=== PATIENT | female | born 1950 | race Caucasian/White ===

== ENCOUNTER → 2018-01-10 06:59 | Outpatient (CLI) | payer OTHER, SELFPAY ==
[2018-01-10 10:57] LABS: Color, Urine Yellow (Yellow); Glucose, Dipstick 1000 mg/dl (Normal); Ketone-Dipstick Negative (Negative); Leukocyte Esterase-Dipstick 25 /ul (Negative); Nitrite-Dipstick Negative (Negative); Occult Blood-Urine 10 /ul (Negative); Protein-Dipstick 15 mg/dl (Negative); Specific Gravity, Urine 1.015 (1.002-1.030); Urine Bilirubin Dipstick Negative (Negative); Urine Clarity Clear (Clear); Urine Urobilinogen Normal (Normal)
[2018-01-10 11:39] LABS: AST(SGOT) 12 U/L (15-37); Alanine Aminotransfer ALT/SGPT 29 U/L (13-56); Albumin, Serum 3.8 g/dL (3.2-5.0); Alkaline Phosphatase 102 U/L (45-117); Anion Gap 10 (5-15); BUN 20 mg/dL (7-18); BUN/Creat Ratio 16.9 RATIO (10-20); Calcium,Total 9.2 mg/dL (8.5-10.1); Chloride 98 mmol/L (98-107); Creatinine, Serum 1.18 mg/dL (0.55-1.02); EST Glomerular Filtration Rate 48 mL/min (>60); Est Glom Filt Rate - Afr Amer 59 mL/min (>60); Globulin 3.7 g/dL (2.2-4.2); Glucose 389 mg/dL (74-106); Potassium 3.9 mmol/L (3.5-5.1); Protein, Total 7.5 g/dL (6.4-8.2); Sodium Level 138 mmol/L (136-145)
[2018-01-10 11:48] LABS: Microalbumin,Random Urine 38.9 mg/L (NO RANGE EST.); Microalbumin:Creatinine Ratio 60.5 mg/g CRE (<30 mg/g CRE)
[2018-01-14 12:07] LABS: CHOLESTEROL TOTAL 189 mg/dL (100-199); HDL-C 54 mg/dL (>39); HDL-P TOTAL 38.4 umol/L (>=30.5); SMALL LDL-P 851 nmol/L (<=527); TRIGLYCERIDES 104 mg/dL (0-149)
[2018-01-15 11:36] LABS: LDL SIZE 20.5 nm (>20.5); LDL-C 114 mg/dL (0-99); LDL-P 1751 nmol/L (<1000); LP-IR SCORE ** 79 (<=45)
== END ==
PROVIDERS: Family Provider Internal Medicine; PCP Internal Medicine; Visit Provider Internal Medicine
DX: E11.9 Type 2 diabetes mellitus without complications (principal); E03.9 Hypothyroidism, unspecified; E78.00 Pure hypercholesterolemia, unspecified; R82.90 Unspecified abnormal findings in urine
CPT/HCPCS: 36415; 80053; 80061; 81002; 82043; 82570; 83704; 84443; 87086; 87088; 87186

== ENCOUNTER → 2018-04-25 07:02 | Outpatient (CLI) | payer OTHER, SELFPAY ==
[2018-04-25 10:35] LABS: Absolute Lymphocyte Count 2.04 X10^3/ul (0.83-4.51); Basophil# 0.03 X10^3/uL; Basophil% 0.4 % (0-1); Eosinophil# 0.79 X10^3/uL; Eosinophils% 9.6 % (0-5); Hemoglobin 13.3 g/dl (12.0-15.0); Lymphocyte # 2.04 X10^3/ul (4.0); Lymphocyte % 24.9 % (19-41); Mean Corp Hgb Conc 31.7 g/gl (32-36); Mean Corpuscular Hgb 28.1 pg (27.0-32.0); Mean Corpuscular Volume 88.6 fL (81-99); Mean Platelet Vol. 9.2 fl (6.2-12.0); Monocyte# 0.37 X10^3/uL; Monocyte% 4.5 % (0-10); Neutrophil # 4.96 X10^3/uL (2.7-7.7); Neutrophil % 60.5 % (47-70); Platelet Count 533 K/mm3 (150-450); RBC Distribution Width CV 12.4 % (11.6-14.6); RBC Distribution Width SD 40.1 fl (35.1-43.9); Red Blood Count 4.74 M/mm3 (4.2-5.4); White Blood Count 8.2 K/mm3 (4.4-11.0)
[2018-04-25 10:36] LABS: POSITIVE COUNT NO; POSITIVE DIFFERENTIAL NO; POSITIVE MORPHOLOGY NO
[2018-04-25 10:57] LABS: Hemoglobin A1c 11.3 % (4.2-6.3)
[2018-04-25 11:09] LABS: Microalbumin:Creatinine Ratio 52.6 mg/g CRE (<30 mg/g CRE)
[2018-04-25 11:11] LABS: ALB/GLOB Ratio 0.8 RATIO (0.9-2.4); AST(SGOT) 15 U/L (15-37); Alanine Aminotransfer ALT/SGPT 29 U/L (13-56); Albumin, Serum 3.3 g/dL (3.2-5.0); Alkaline Phosphatase 92 U/L (45-117); Anion Gap 9 (5-15); BUN 15 mg/dL (7-18); BUN/Creat Ratio 13.3 RATIO (10-20); Bilirubin, Direct 0.15 mg/dL (0.00-0.30); Calcium,Total 9.6 mg/dL (8.5-10.1); Chloride 101 mmol/L (98-107); Creatinine, Serum 1.13 mg/dL (0.55-1.02); EST Glomerular Filtration Rate 51 mL/min (>60); Est Glom Filt Rate - Afr Amer 61 mL/min (>60); Ferritin 147 ng/mL (8-252); Globulin 4.4 g/dL (2.2-4.2); Glucose 160 mg/dL (74-106); Potassium 4.3 mmol/L (3.5-5.1); Protein, Total 7.7 g/dL (6.4-8.2); Sodium Level 141 mmol/L (136-145); Thyroid Stim Hormone (TSH) 1.46 uIU/mL (0.358-3.74)
[2018-04-29 11:56] LABS: Lipoprotein A 16 nmol/L (<75)
== END ==
PROVIDERS: Family Provider Internal Medicine; PCP Internal Medicine; Referring Provider Internal Medicine; Visit Provider Internal Medicine
DX: E03.9 Hypothyroidism, unspecified (principal); I10 Essential (primary) hypertension; R79.82 Elevated C-reactive protein (CRP); E11.9 Type 2 diabetes mellitus without complications; E78.00 Pure hypercholesterolemia, unspecified; D64.9 Anemia, unspecified
CPT/HCPCS: 36415; 80053; 82043; 82248; 82570; 82728; 83036; 83695; 84443; 85025; 86140

== ENCOUNTER → 2018-05-09 08:35 | Outpatient (CLI) | payer OTHER, SELFPAY ==
--- NOTE | 2018-05-09 08:40 | RAD_ITS ---
STUDY: X-RAY - LEFT HIP with AP pelvis REASON FOR EXAM: Female, 67 years old. Left hip pain TECHNIQUE: 2 views of the hip. AP pelvis. COMPARISON: None. FINDINGS: There are vascular phleboliths. Normal femoral head, neck, intertrochanteric region and visualized proximal femur. Normal acetabulum. Normal hip joint. Pelvic ring is intact without evidence of lytic or sclerotic bone lesion. There are surgical clips projecting over the right side of the sacrum. Degenerative changes of the lumbar spine noted. RAD/HIP, UNI W/ Pelvis 2-3 Views IMPRESSION: 1. Normal x-ray examination of the hip. 2. Partially visualized degenerative changes of the lumbar spine. Electronically Signed: Juan Daniel Corrigan MD at 7:13 EST , Service support ,
--- NOTE | 2018-05-09 08:41 | RAD_ITS ---
STUDY: X-RAY CHEST REASON FOR EXAM: Female, 67 years old. Cough TECHNIQUE: PA and lateral views of the chest. COMPARISON: 07/04/2016 FINDINGS: The lungs are clear and expanded. There is no demonstrated pleural abnormality. Normal size heart. Normal mediastinum and ayaz. Normal visualized pulmonary arteries. Normal visualized aortic arch and descending thoracic aorta. There are diffuse degenerative changes of the visualized thoracic spine. Normal visualized ribs, clavicles, and shoulders. There is no demonstrated abnormality of the visualized soft tissue structures of the upper abdomen. RAD/Chest PA and Lateral IMPRESSION: Normal x-ray examination of the chest. Electronically Signed: Juan Daniel Corrigan MD at 7:14 EST , Service support ,
== END ==
PROVIDERS: Family Provider Internal Medicine; PCP Internal Medicine; Referring Provider Internal Medicine; Visit Provider Internal Medicine
DX: M25.552 Pain in left hip (principal); J06.9 Acute upper respiratory infection, unspecified
CPT/HCPCS: 71046; 73502

== ENCOUNTER → 2018-05-14 08:31 | Outpatient (CLI) | payer OTHER, SELFPAY ==
--- NOTE | 2018-05-14 08:33 | BI_ITS ---
MAMMOGRAPHY - BILATERAL SCREENING REASON FOR EXAM: Female, 67 years old. Routine annual screening examination. PERTINENT HISTORY: Non-contributory. TECHNIQUE: Digital bilateral breast wiinfred (3D mammographic acquisition) in the CC and MLO projections. 2-D mediolateral oblique (MLO) and craniocaudad (CC) views of both breasts were obtained. CAD: Full Field Digital Mammography with Computer Added Detection was performed. COMPARISON: Comparison is made with prior study dated July 26, 2016. FINDINGS: Breast Composition: The breasts are almost entirely fatty. There are no dominant masses or suspicious calcifications. Stable well-defined 4.4 mm nodule in the upper lateral aspect of the left breast. Stable 1 cm well-defined nodule in the upper deep lateral portion of the right breast. These may represent either small lymph nodes or small cysts. Correlation with ultrasound is recommended. Stable small bilateral axillary lymph nodes. No other significant abnormalities are identified. There has been no significant change since the prior study. BI/SCREENING MAMM (CAD), BILAT IMPRESSION: Stable bilateral screening mammogram. Correlation with ultrasound of both breasts is recommended for further evaluation. ASSESSMENT CATEGORY: BIRADS Category 0: Incomplete. Need additional imaging evaluation. A letter regarding these results will be sent to the patient by the facility within 30 days. Approximately 10% of breast cancers are not detected by mammography. A normal mammogram should not delay biopsy of a clinically suspicious abnormality. [id number] Electronically Signed: Fei Gasca MD at 10:12 EST Tel [phone], Service support ,
== END ==
PROVIDERS: Family Provider Internal Medicine; PCP Internal Medicine; Visit Provider Internal Medicine
DX: Z12.31 Encounter for screening mammogram for malignant neoplasm of breast (principal)
CPT/HCPCS: 77063; 77067

== ENCOUNTER → 2018-05-16 12:59 | Outpatient (CLI) | payer OTHER, SELFPAY ==
--- NOTE | 2018-05-16 13:00 | US_ITS ---
STUDY: ULTRASOUND BREAST - RIGHT REASON FOR EXAM: Female, 67 years old. Abnormal screening mammogram. TECHNIQUE: Axial and longitudinal images of the RIGHT breast were performed with a high resolution ultrasound transducer. COMPARISON: Comparison is made with prior mammogram dated May 14, 2018. FINDINGS: RIGHT Breast: There is a 9 mm x 5 mm x 6 mm well-defined hypoechoic nodule with a central echogenic hilus at the 11:00 position breast at 6 cm from nipple. This most likely represents a small lymph node. IMPRESSION: The mammographic finding corresponds to 9 mm x 5 mm x 6 mm lymph node at the 11 o'clock position of the breast at 6 cm from the nipple. ASSESSMENT CATEGORY: BIRADS Category 2: Benign. A letter regarding these results will be sent to the patient by the facility within 30 days. Electronically Signed: Fei Gasca MD at 14:44 EST Tel [phone], Service support , STUDY: ULTRASOUND BREAST - LEFT REASON FOR EXAM: Female, 67 years old. Abnormal screening mammogram. TECHNIQUE: Axial and longitudinal images of the LEFT breast were performed with a high resolution ultrasound transducer. COMPARISON: Comparison is made with prior mammogram dated May 14, 2018. FINDINGS: LEFT Breast: The mammographic abnormality corresponds to a 7 mm x 5 mm x 3 mm hypoechoic nodule with central echogenic hilum suggestive of a small lymph node. US/Breast Limited Unilateral IMPRESSION: The mammographic abnormality corresponds to a subcentimeter lymph node. Routine annual mammographic follow-up is recommended. ASSESSMENT CATEGORY: BIRADS Category 2: Benign. A letter regarding these results will be sent to the patient by the facility within 30 days. Electronically Signed: Fei Gasca MD at 14:45 EST Tel [phone], Service support ,
== END ==
PROVIDERS: Family Provider Internal Medicine; PCP Internal Medicine; Visit Provider Internal Medicine
DX: R92.8 Other abnormal and inconclusive findings on diagnostic imaging of breast (principal)
CPT/HCPCS: 76642

== ENCOUNTER 2018-06-16 07:00 | Outpatient (RCR) | payer OTHER, SELFPAY ==
--- NOTE | 2018-05-16 07:58 | HP.PTEVAL ---
Patient's Visit Information ROGER DAMON is a 67 year old F referred to Physical Therapy by Candice Linton MD with a diagnosis of Hip Pain. Date of Evaluation: 05/16/18 Physical Therapist: Coleen Li DPT - Visit Plan Frequency: 2-3x /Week Duration: 4 Weeks Plan: Focus on LE and core strength- ultrasound as modality of choice - Subjective Findings: About 3 months ago when she first got up in the AM the left hip was deep and achy. She would get ready for work move around and after an hour it would go awaay. Thinking probably arthritis. About a month ago walking through the grocery- took a step and a pain so intense shot through it- could not put weight on it and took about 10 min and then could. A couple of days after that it really hurt for a few days- ice would help relieve the pain but it would be sore. Last week to Dr. Linton- took an x-ray which showed the hip was the normal but the back has arthritis. Now the other side is starting to bother her. Best: 0/10 Eases: sitting down and ice. Worst:10/10. Feels like the hip is going to give out. No radiating pain- Has had a the sharp take her breathe away it a few times. No N/T in the LE- no change or loss of bowel or bladder. No back pain. 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 Did ride a stationary bike and walks at lunch time but has stopped due to pain. No falls at home. Sleep: not disturbed- side sleeper- when she rolls over in the middle of the night it will wak her due to pain. No recent changes in activity level. Is unable to squat and pick something up off the floor. Does have stairs which is more uncomfortable going up than coming down. PMhx: DM, HTN, Hypothyroid Meds: Bidurian, Levomere, Losartin, Synthroid, Prevastatin - Objective Posture: FH, RS, increased kyphosis- can correct but does not maintain. Gait: slightly antalgic decreased stance and push off on the left LE-. Stairs:asc/desc 8 recip with 1 HR- increased UE A for ascend. HR/TR: able with UE A from wall and reports more pain with TR. SLS: unable to stand more than 2 seconds before required to put other foot on the floor for balance. Sensation/Reflex: WNL. ROM: Lumbar: WFL in all planes but reports pain with SB to the right and flexion. -pain with ER on the left. Palpation: tender along great troch and through the gluts on the left. Strength: Ankle: 5/5, Knee: flexion: 4/5, extn: 5/5, Hip: flexion: 4-/5, abd: 4-/5, clam glut med: 4-/5 with pain, IR: 4/5, ER: 3+/5 with pain Core: fair minus. Flex: HS: mild, Gastroc: mild. Special Test: Slump: negative, Dural Signs on left: positive - Goals Goal 1:: Patient will be I with HEP and progression Goal Time Frame: 4-6 Weeks Goal 2:: Patient will ambulate >300 feet with a normalized gait pattern. Goal Time Frame: 4-6 Weeks Goal 3:: Patient will asc stairs with 0/10 pain Goal Time Frame: 4-6 Weeks Goal 4:: Patient will demo 4+/5 strength in LE Goal Time Frame: 4-6 Weeks Goal 5:: Patient will maintain proper posture t/o tx session to demo increased core s/s Goal Time Frame: 4-6 Weeks - Rehabilitation Potential Physical Therapy Diagnosis: Patient presents with hypomobility- she has decreased strength and muscular endurance of the LE and core leading increased pain with ADL's. Rehabilitation Potential: Good - Anticipated Interventions Therapeutic Exercise to Include: Strength training, Endurance training, Balance training, Body mechanics, Postural training, Gait and locomotor training, Dynamic Lumbar Stabilization For the Purpose of:: To improve muscle performance and motor function TENS: Yes Cryotherapy (ice pack, ice massage): Yes Thermo therapy (hot pack): Yes Ultrasound (thermal/non thermal): Yes For the Purpose of:: To decrease pain, To decrease swelling/inflammation Thank you for the opportunity to evaluate your patient. For Medicare and Medicare HMO plans, please review the plan of care and approve it. It will need to be FAXED BACK to us at [phone] for Medicare purposes. For Medicare only, by signing this I certify the plan of care. Please let me know if there are questions or concerns regarding this plan of care. Physician Signature: Date:
--- NOTE | 2018-06-16 07:29 | HP.PTDCSUM ---
HP - PT D/C Summary It has been my pleasure to treat ROGER DAMON under orders from Candice Linton MD, for the diagnosis of Hip Pain for a total of 9 visit(s). Discharge Date: Please see the following information for a summary of their discharge status. - Subjective Subjective: The hip is so much better- is not having those grabbing sharp pains at all anymore. Still has discomfort with figure 4. Sleep is not disturbed. Patient feels that her is hipis 85% better. - Pain L hip Pain Intensity (Out of 10): 0 - Overall Improvement % Improvement: 85 - Objective Objective/Function: Posture: good throughout treatment session in supported chair Gait: no devaition noted-. Stairs:asc/desc 8 recip with 1 HR- no deviation noted. HR/TR: able with UE A. SLS: unable to stand more than 7 seconds before required to put other foot on the floor for balance. Sensation/Reflex: WNL. ROM: WFL Palpation: not tender Strength: Ankle: 5/5, Knee: flexion: 5/5, extn: 5/5, Hip: flexion: 4+/5, abd: 4+/5, clam glut med: 4/5, IR: 4+/5, ER: 4/5 Core: fair Flex: HS: mild, Gastroc: mild. Special Test: Slump: negative, Dural Signs on left:negative - Goals Goal 1:: Patient will be I with HEP and progression Goal Progress: Goal Met Goal 2:: Patient will ambulate >300 feet with a normalized gait pattern. Goal 3:: Patient will asc stairs with 0/10 pain Goal Progress: Goal Met Goal 4:: Patient will demo 4+/5 strength in LE Goal Progress: Progressing Goal 5:: Patient will maintain proper posture t/o tx session to demo increased core s/s Goal Progress: Goal Met - Plan Plan: Discharge to I HEP - D/C Information If there are questions or concerns regarding this patient's physical therapy, please feel free to call me at [phone]. Thank you for the referral of this patient. Sincerely, Coleen Li DPT
== END 2018-06-16 19:00 | disposition home or self-care (01) ==
LOC: PT 07:00
PROVIDERS: Family Provider Internal Medicine; PCP Internal Medicine; Referring Provider Internal Medicine; Visit Provider Internal Medicine
DX: M25.552 Pain in left hip (principal)
CPT/HCPCS: 97110; 97161; 97164

== ENCOUNTER → 2018-07-29 08:29 | Outpatient (CLI) | payer OTHER, SELFPAY ==
--- NOTE | 2018-07-29 08:33 | BD_ITS ---
STUDY: DUAL ENERGY X-RAY ABSORPTIOMETRY / DXA REASON FOR EXAM: Female, 68 years old. The patient is postmenopausal. TECHNIQUE: Bone Mineral Density (BMD) measurements of lumbar spine and bilateral hips were obtained. COMPARISON: Comparison is made with prior study dated July 26, 2016. FINDINGS: Lumbar Spine (L1-L4): g/cm2 (1.253) / T-score (0.7) / Z-score (2.4) Findings are suggestive of normal bone density with a low fracture risk. Left Femur Total: g/cm2 (0.992) / T-score (-0.1) / Z-score (1.3) Left Femoral Neck: g/cm2 (0.920) / T-score (-0.9) / Z-score (0.8) Right Femur Total: g/cm2 (0.994) / T-score (-0.1) / Z-score (1.3) Right Femoral Neck: g/cm2 (1.219) / T-score (1.3) / Z-score (3.0) The T-Scores on the most recent prior examination were: Lumbar Spine (L1-L4): There has been worsening of bone density since the previous examination. Left Femur Total: which represents a worsening of 5.5%. Right Femur Total: which represents a worsening of 6.1%. BD/Dexa Bone Density Study IMPRESSION: The patient is considered normal as outlined below according to World Yosvany Organization (WHO) criteria with a low fracture risk. There has been worsening of bone density since the previous examination. Reference Information: The T-score is the number of standard deviations above or below the standard which is normal for young adults at their peak bone mineral density. The World Health Organization (WHO) interprets the T-scores as follows: Above -1 Normal bone density Between -1 and -2.5 Osteopenia Equal to / or below -2.5 Osteoporosis As a practical clinical guideline, osteopenia may be graded as follows: Mild -1 through -1.5 Moderate -1.6 through -2.0 Severe -2.1 through -2.4 The Z-score is the number of standard deviations above or below age-matched controls. A Z-score of less than -1.5 would be considered abnormal. References: 1. NIH Osteoporosis and Related Bone Diseases http://www.osteo.org 2. International Society for Clinical Densitometry http://www.iscd.org 3. National Osteoporosis Foundation http://www.nof.org Electronically Signed: Fei Gasca, at 14:12 EDT , Service support ,
== END ==
PROVIDERS: Family Provider Internal Medicine; PCP Internal Medicine; Referring Provider Internal Medicine; Visit Provider Internal Medicine
DX: Z78.0 Asymptomatic menopausal state (principal)
CPT/HCPCS: 77080

== ENCOUNTER → 2018-09-11 07:01 | Outpatient (CLI) | payer OTHER, SELFPAY ==
[2018-09-11 10:33] LABS: AST(SGOT) 12 U/L (15-37); Alanine Aminotransfer ALT/SGPT 24 U/L (13-56); Albumin, Serum 3.7 g/dL (3.2-5.0); Alkaline Phosphatase 76 U/L (45-117); Globulin 3.6 g/dL (2.2-4.2); Protein, Total 7.3 g/dL (6.4-8.2)
[2018-09-12 16:07] LABS: CHOLESTEROL TOTAL 136 mg/dL (100-199); HDL-C 51 mg/dL (>39); HDL-P TOTAL 36.3 umol/L (>=30.5); SMALL LDL-P 327 nmol/L (<=527); TRIGLYCERIDES 85 mg/dL (0-149)
[2018-09-15 13:50] LABS: INSULIN RESISTANCE SCORE 50 (<=45); LDL SIZE 20.5 nm (>20.5); LDL-C 68 mg/dL (0-99); LDL-P 862 nmol/L (<1000)
== END ==
PROVIDERS: Family Provider Internal Medicine; PCP Internal Medicine; Referring Provider Internal Medicine; Visit Provider Internal Medicine
DX: E03.9 Hypothyroidism, unspecified (principal); E11.9 Type 2 diabetes mellitus without complications; I10 Essential (primary) hypertension; R79.82 Elevated C-reactive protein (CRP); D64.9 Anemia, unspecified; E78.00 Pure hypercholesterolemia, unspecified
CPT/HCPCS: 36415; 80061; 80076; 83704

== ENCOUNTER → 2018-11-03 | Outpatient (CLI) | payer OTHER, SELFPAY ==
--- NOTE | 2018-11-03 07:53 | US_ITS ---
STUDY: ULTRASOUND BREAST - RIGHT REASON FOR EXAM: Female, 68 years old. Six-month follow-up. History of bilateral axillary lymph nodes. TECHNIQUE: Axial and longitudinal images of the RIGHT breast were performed with a high resolution ultrasound transducer. COMPARISON: Comparison is made with prior ultrasound of the right breast dated May 16, 2018. FINDINGS: RIGHT Breast: There is a 9 mm x 6 mm x 5 mm well-defined hypoechoic nodule with a central echogenic hilus at the level o'clock position breast at 6 cm from nipple. This is unchanged. IMPRESSION: Findings suggestive of a stable small right axial lymph node. ASSESSMENT CATEGORY: BIRADS Category 2: Benign. A letter regarding these results will be sent to the patient by the facility within 30 days. Electronically Signed: Fei Campos, at 10:30 EDT , Service support , STUDY: ULTRASOUND BREAST - LEFT REASON FOR EXAM: Female, 68 years old. Six-month follow-up for a left axillary lymph node. TECHNIQUE: Axial and longitudinal images of the LEFT breast were performed with a high resolution ultrasound transducer. COMPARISON: Comparison is made with prior ultrasound of the breasts dated May 16, 2018. FINDINGS: LEFT Breast: Stable 4 mm x 7 mm x 3 mm well-defined hypoechoic nodule with a central echogenic hilum at the 3:00 position breast at 6 signs from nipple. US/Breast Limited Unilateral IMPRESSION: Stable appearance of the benign appearing axillary node. ASSESSMENT CATEGORY: BIRADS Category 2: Benign. A letter regarding these results will be sent to the patient by the facility within 30 days. Electronically Signed: Fei Gasca, at 10:31 EDT , Service support ,
== END | disposition home or self-care (01) ==
LOC: OPUS 07:51
PROVIDERS: Family Provider Internal Medicine; PCP Internal Medicine; Referring Provider Internal Medicine; Visit Provider Internal Medicine
DX: N63.0 Unspecified lump in unspecified breast (principal)
CPT/HCPCS: 76642

== ENCOUNTER → 2018-12-19 | Outpatient (CLI) | payer OTHER, SELFPAY ==
[2018-12-19 10:21] LABS: Absolute Lymphocyte Count 1.95 X10^3/uL (0.83-4.51); Absolute Neutrophil Count 4.3 X10^3/uL (2.0-7.7); Basophil# 0.06 X10^3/uL; Basophil% 0.8 % (0-1); Eosinophils% 9.2 % (0-5); Hematocrit 41.8 % (37-47); Hemoglobin 13.5 g/dL (12.0-15.0); Lymphocyte # 1.95 X10^3/ul (4.0); Lymphocyte % 25.7 % (19-41); Mean Corp Hgb Conc 32.3 g/dL (32-36); Mean Corpuscular Hgb 28.8 pg (27.0-32.0); Mean Corpuscular Volume 89.3 fL (81-99); Mean Platelet Vol. 10.2 fl (6.2-12.0); Monocyte# 0.54 X10^3/uL; Monocyte% 7.1 % (0-10); NRBC Flagged by Analyzer 0 % (0-5); Neutrophil # 4.33 X10^3/uL (2.7-7.7); Neutrophil % 56.9 % (47-70); Platelet Count 328 K/mm3 (150-450); RBC Distribution Width SD 42.5 fl (35.1-43.9); Red Blood Count 4.68 M/mm3 (4.2-5.4); White Blood Count 7.6 K/mm3 (4.4-11.0)
[2018-12-19 10:39] LABS: Anion Gap 3 (5-15); BUN 26 mg/dL (7-18); BUN/Creat Ratio 24.1 RATIO (10-20); CRP 8.66 mg/L (0.0-3.0); Calcium,Total 9.3 mg/dL (8.5-10.1); Chloride 107 mmol/L (98-107); Creatinine, Serum 1.08 mg/dL (0.55-1.02); EST Glomerular Filtration Rate 53 mL/min (>60); Est Glom Filt Rate - Afr Amer 65 mL/min (>60); Glucose 166 mg/dL (74-106); Potassium 4.3 mmol/L (3.5-5.1); Sodium Level 142 mmol/L (136-145)
== END | disposition home or self-care (01) ==
LOC: MTLAB 07:02
PROVIDERS: Family Provider Internal Medicine; PCP Internal Medicine; Referring Provider Internal Medicine; Visit Provider Internal Medicine
DX: I10 Essential (primary) hypertension (principal); D47.3 Essential (hemorrhagic) thrombocythemia; R79.82 Elevated C-reactive protein (CRP)
CPT/HCPCS: 36415; 80048; 85025; 86140

== ENCOUNTER → 2019-04-27 12:04 | Outpatient (CLI) | payer OTHER, SELFPAY ==
--- NOTE | 2019-04-27 12:07 | RAD_ITS ---
STUDY: X-RAY - LEFT KNEE REASON FOR EXAM: Female, 68 years old. MEDIAL PAIN, NKI TECHNIQUE: 4 view(s) of the knee. COMPARISON: None. FINDINGS: Normal visualized distal femur. Normal visualized proximal tibia and fibula. Normal proximal tibiofibular articulation. There is no demonstrated fracture. Normal medial femorotibial compartment. Normal lateral femorotibial compartment. Normal patellofemoral articulation. Mild joint effusion. The soft tissue structures are unremarkable. RAD/Knee 4 or More Views IMPRESSION: Mild joint effusion otherwise normal x-ray examination of the knee. Electronically Signed: Kiara Burgess MD at 3:17 EST , Service support ,
== END ==
PROVIDERS: Family Provider Internal Medicine; PCP Internal Medicine; Visit Provider Internal Medicine
DX: M25.562 Pain in left knee (principal)
CPT/HCPCS: 73564

== ENCOUNTER → 2019-05-22 11:25 | Outpatient (CLI) | payer OTHER, SELFPAY ==
--- NOTE | 2019-05-22 11:27 | BI_ITS ---
MAMMOGRAPHY - BILATERAL SCREENING REASON FOR EXAM: Female, 69 years old. Routine annual screening examination. PERTINENT HISTORY: Non-contributory. TECHNIQUE: Digital bilateral breast parth (3D mammographic acquisition) in the CC and MLO projections. 2-D mediolateral oblique (MLO) and craniocaudad (CC) views of both breasts were obtained. CAD: Full Field Digital Mammography with Computer Added Detection was performed. COMPARISON: Comparison is made with prior mammogram dated May 14, 2018 and July 26, 2006 FINDINGS: Breast Composition: The breasts are almost entirely fatty. There are no dominant masses or suspicious calcifications. Stable 1 cm well-defined nodule in the upper deep lateral portion of the right breast as well as a 4 mm nodule in the upper lateral aspect of the left breast. These have been demonstrated to be small lymph nodes on prior sonogram. No other significant abnormalities are identified. There has been no significant change since the prior study. BI/SCREEN MAMM (CAD) W/PARTH BILAT IMPRESSION: Stable bilateral screening mammogram. Yearly follow-up mammogram recommended. (A) ASSESSMENT CATEGORY: BIRADS Category 2: Benign. A letter regarding these results will be sent to the patient by the facility within 30 days. Approximately 10% of breast cancers are not detected by mammography. A normal mammogram should not delay biopsy of a clinically suspicious abnormality. [id number] Electronically Signed: Fei Gasca, at 12:43 EST , Service support ,
== END ==
PROVIDERS: Family Provider Internal Medicine; PCP Internal Medicine; Referring Provider Internal Medicine; Visit Provider Internal Medicine
DX: Z12.31 Encounter for screening mammogram for malignant neoplasm of breast (principal)
CPT/HCPCS: 77063; 77067

== ENCOUNTER → 2020-03-08 11:36 | Outpatient (CLI) | payer OTHER, SELFPAY ==
--- NOTE | 2020-03-08 11:40 | CT_ITS ---
STUDY: CT ORBITS WITHOUT CONTRAST REASON FOR EXAM: Female, 69 years old. Fell last night. brushing to right eye with swelling RADIATION DOSAGE (If Supplied By Facility): CTDIvol = ( 29.38 ) mGy, DLP = ( 275.66 ) mGycm TECHNIQUE: The patient was scanned in a multi detector CT scanner. Transaxial imaging was performed without the administration of intravenous contrast material. Sagittal and coronal images were reconstructed. Individualized dose optimization techniques were used for this CT. COMPARISON: None. FINDINGS: Focal calcification is seen along the lateral aspect of the right globe. Normal intraconal spaces. Normal optic nerve sheath complex. Normal bilateral extraocular muscles. Normal lacrimal glands. Normal bilateral medial and inferior orbital narayanan. Normal bilateral maxillary bones. Normal bilateral frontozygomatic arches. Normal bilateral zygomatic temporal arches. Normal frontal sinus. Partial opacification of the ethmoid sinuses. Minimal mucosal thickening of the maxillary sinuses. Normal sphenoid sinuses. Soft tissue swelling overlying the right orbit suggestive of the probable ecchymosis with a history of fall. CT/Orb Sella Post Fossa Ear w/o IMPRESSION: Preseptal soft tissue swelling overlying the right orbit. Partial opacification of the ethmoid sinuses and mucosal thickening of the maxillary sinuses. Electronically Signed: Fei Gasca, at 12:11 EST , Service support ,
--- NOTE | 2020-03-08 11:45 | CT_ITS ---
STUDY: CT BRAIN WITHOUT CONTRAST REASON FOR EXAM: Female, 69 years old. Fell last night. brushing to right eye with swelling RADIATION DOSAGE (If Supplied By Facility): CTDIvol = ( 44.99 ) mGy, DLP = ( 796.11 ) mGycm TECHNIQUE: Transaxial CT imaging of the brain was performed without administration of intravenous contrast material. Individualized dose optimization techniques were used for this CT. COMPARISON: No relevant priors. FINDINGS: Preseptal soft tissue swelling overlying the right orbital region and compared with the patient''s history of trauma. Focal calcification is seen along the lateral of the right globe. There is hyperostosis frontalis internus. There is mild cerebral atrophy with widening of the extra-axial spaces and ventricular dilatation. There are areas of decreased attenuation within the white matter tracts of the supratentorial brain, consistent with microvascular disease changes. Normal basal ganglia and thalami. Normal brainstem. Normal cerebellum. There is no intracranial hemorrhage. There are no findings of an acute ischemic infarction. Partial opacification of the ethmoid sinuses. Mucosal thickening of the maxillary sinuses. Focal mucosal thickening of the anterior medial aspect of the left frontal sinus. IMPRESSION : Chronic involutional changes of the brain. Soft tissue swelling overlying the right globe. No fracture is seen. Sinusitis as described. Electronically Signed: Fei Gasca, at 12:13 EST , Service support , CT/Brain/Head without Contrast
== END ==
PROVIDERS: PCP Internal Medicine; Referring Provider Internal Medicine; Visit Provider Internal Medicine
DX: S09.90XA Unspecified injury of head, initial encounter (principal)
CPT/HCPCS: 70450; 70480

== ENCOUNTER → 2020-06-03 14:58 | Outpatient (CLI) | payer OTHER, SELFPAY ==
--- NOTE | 2020-06-03 15:00 | BI_ITS ---
MAMMOGRAPHY - BILATERAL SCREENING REASON FOR EXAM: Female, 70 years old. Routine annual screening examination. PERTINENT HISTORY: Non-contributory. TECHNIQUE: Digital bilateral breast parth (3D mammographic acquisition) in the CC and MLO projections. 2-D mediolateral oblique (MLO) and craniocaudad (CC) views of both breasts were obtained. CAD: Full Field Digital Mammography with Computer Added Detection was performed. COMPARISON: Comparison is made with prior study dated 05/22/2019 and 05/14/2018. FINDINGS: Breast Composition: The breasts are almost entirely fatty. There are no dominant masses or suspicious calcifications. Stable 1 cm well-defined nodule in the deep upper lateral portion of the right breast. There is also evidence of a stable 4 mm well-defined nodule in the slightly upper lateral aspect of the left breast. These were demonstrated to be small lymph nodes on prior sonogram. Stable small bilateral axillary lymph nodes. No other significant abnormalities are identified. There has been no significant change since the prior study. BI/SCRN MAMM (CAD)W/PARTH BILAT IMPRESSION: Stable bilateral screening mammogram. Yearly follow-up mammogram recommended. (A) ASSESSMENT CATEGORY: BIRADS Category 2: Benign. A letter regarding these results will be sent to the patient by the facility within 30 days. Approximately 10% of breast cancers are not detected by mammography. A normal mammogram should not delay biopsy of a clinically suspicious abnormality. [id number] Electronically Signed: Fei Gasca MD at 15:35 EST , Service support ,
== END ==
PROVIDERS: PCP Internal Medicine; Referring Provider Internal Medicine; Visit Provider Internal Medicine
DX: Z12.31 Encounter for screening mammogram for malignant neoplasm of breast (principal)
CPT/HCPCS: 77063; 77067

== ENCOUNTER → 2020-06-14 13:46 | Outpatient (CLI) | payer OTHER, SELFPAY ==
--- NOTE | 2020-06-14 13:48 | CDU_ITS ---
Reason For Study: stenosis Rt. Velocities/BP Lt. Velocities/BP Prox CCA 77.3/8.2 cm/sec. Prox CCA 100.8/17.3 cm/sec. Mid CCA 96.9/14.7 cm/sec. Mid CCA 106.0/18.6 cm/sec. Dist CCA 79.9/14.7 cm/sec. Dist CCA 107.3/17.3 cm/sec. Prox ICA 93.0/13.4 cm/sec. Prox ICA 79.9/17.3 cm/sec. Mid ICA 99.5/21.3 cm/sec. Mid ICA 85.1/20.0 cm/sec. Dist ICA 63.0/17.3 cm/sec. Dist ICA 83.8/22.6 cm/sec. Rt. ICA/CCA = 1.0. Lt. ICA/CCA = .8. Prox ECA 94.3/5.6 cm/sec. Prox ECA 99.5/9.5 cm/sec. Rt. Vert. 46.0/8.2 cm/sec. Lt. Vert. 52.5/12.1 cm/sec. Right Extracranial There is intimal thickening but no significant atherosclerotic plaque noted in the right common carotid artery. There is heterogeneous, irregular atherosclerotic plaque noted in the right internal carotid artery. There is intimal thickening but no significant atherosclerotic plaque noted in the right external carotid artery. Antegrade flow is noted in the right vertebral artery. Left Extracranial There is intimal thickening but no significant atherosclerotic plaque noted in the left common carotid artery. There is heterogeneous, irregular atherosclerotic plaque noted in the left internal carotid artery. There is intimal thickening but no significant atherosclerotic plaque noted in the left external carotid artery. Antegrade flow is noted in the left vertebral artery. Procedure Carotid Duplex [id number]. This is a Carotid Duplex examination using B-mode, color flow and specral Doppler. The exam was diagnostic. Exam performed in department. Interpretation Summary Mild (<50%) stenosis right extracranial internal carotid. Mild (<50%) stenosis left extracranial internal carotid. Flow within the vertebral arteries is antegrade bilaterally. Ordering Physician: Candice Linton Performed By: Brooks Cortez RVT
== END ==
PROVIDERS: PCP Internal Medicine; Referring Provider Internal Medicine; Visit Provider Internal Medicine
DX: I65.23 Occlusion and stenosis of bilateral carotid arteries (principal)
CPT/HCPCS: 93880

== ENCOUNTER → 2020-08-02 12:24 | Outpatient (CLI) | payer OTHER, SELFPAY ==
--- NOTE | 2020-08-02 12:30 | BD_ITS ---
STUDY: DUAL ENERGY X-RAY ABSORPTIOMETRY / DXA REASON FOR EXAM: Female, 70 years old. Z780 TECHNIQUE: Bone Mineral Density (BMD) measurements of lumbar spine and bilateral hips were obtained. COMPARISON: Comparison is made with prior examination dated 07/29/2018. FINDINGS: Lumbar Spine (L1-L4): g/cm2 (1.206) / T-score (0.3) / Z-score (2.0) Findings are suggestive of normal bone density with a low fracture risk. Left Femur Total: g/cm2 (1.008) / T-score (0.0) / Z-score (1.5) Left Femoral Neck: g/cm2 (0.880) / T-score (-1.1) / Z-score (0.6) Right Femur Total: g/cm2 (1.039) / T-score (0.2) / Z-score (1.8) Right Femoral Neck: g/cm2 (1.311) / T-score (2.0) / Z-score (3.7) The T-Scores on the most recent prior examination were: Lumbar Spine (L1-L4): There has been worsening of bone density since the previous examination. Left Femur Total: which represents an improvement of 1.6%. Right Femur Total: which represents an improvement of 4.5%. BD/Dexa Bone Density Study IMPRESSION: The patient is considered osteopenic as outlined below according to World Yos[employer] Organization (WHO) criteria with a low fracture risk. There has been improvement of bone density since the previous examination. Reference Information: The T-score is the number of standard deviations above or below the standard which is normal for young adults at their peak bone mineral density. The World Health Organization (WHO) interprets the T-scores as follows: Above -1 Normal bone density Between -1 and -2.5 Osteopenia Equal to / or below -2.5 Osteoporosis As a practical clinical guideline, osteopenia may be graded as follows: Mild -1 through -1.5 Moderate -1.6 through -2.0 Severe -2.1 through -2.4 The Z-score is the number of standard deviations above or below age-matched controls. A Z-score of less than -1.5 would be considered abnormal. References: 1. NIH Osteoporosis and Related Bone Diseases www osteo.org 2. International Society for Clinical Densitometry www iscd.org 3. National Osteoporosis Foundation www nof.org Electronically Signed: Fei Gasca MD at 10:27 EDT , Service support ,
== END ==
PROVIDERS: PCP Internal Medicine; Referring Provider Internal Medicine; Visit Provider Internal Medicine
DX: Z78.0 Asymptomatic menopausal state (principal)
CPT/HCPCS: 77080

== ENCOUNTER → 2021-03-16 09:37 | Outpatient (CLI) | payer OTHER, SELFPAY ==
[2021-03-16 12:46] LABS: Anion Gap 7 (5-15); BUN 18 mg/dL (7-18); BUN/Creat Ratio 16.4 RATIO (10-20); Calcium,Total 9.6 mg/dL (8.5-10.1); Chloride 103 mmol/L (98-107); EST Glomerular Filtration Rate 52 mL/min (>60); Est Glom Filt Rate - Afr Amer 63 mL/min (>60); Glucose 166 mg/dL (74-106); Potassium 3.9 mmol/L (3.5-5.1); Sodium Level 140 mmol/L (136-145)
== END ==
PROVIDERS: PCP Internal Medicine; Referring Provider Internal Medicine; Visit Provider Internal Medicine
DX: E03.9 Hypothyroidism, unspecified (principal); I10 Essential (primary) hypertension
CPT/HCPCS: 36415; 80048; 84443

== ENCOUNTER 2021-05-09 11:59 | Outpatient (CLI) | payer OTHER, SELFPAY ==
[2021-05-09 15:26] LABS: Thyroid Stim Hormone (TSH) 1.12 uIU/mL (0.358-3.74)
== END 2021-05-09 23:59 | disposition short-term general hospital (02) ==
LOC: MTLAB 12:05
PROVIDERS: PCP Internal Medicine; Referring Provider Internal Medicine; Visit Provider Internal Medicine
DX: E03.9 Hypothyroidism, unspecified (principal)
CPT/HCPCS: 36415; 84443

== ENCOUNTER → 2024-04-07 | Outpatient (CLI) | payer MEDICARE, OTHER, SELFPAY ==
--- NOTE | 2024-04-07 13:00 | CDU_ITS ---
Reason For Study: Bilateral Carotid Artery Stenosis Rt. Velocities/BP Lt. Velocities/BP Prox CCA 62.0/10.0 cm/sec. Prox CCA 71.4/11.0 cm/sec. Mid CCA 90.0/14.5 cm/sec. Mid CCA 79.9/14.7 cm/sec. Dist CCA 64.8/18.5 cm/sec. Dist CCA 61.0/10.0 cm/sec. Prox ICA 73.1/11.6 cm/sec. Prox ICA 48.7/13.8 cm/sec. Mid ICA 74.0/17.1 cm/sec. Mid ICA 60.6/15.3 cm/sec. Dist ICA 68.6/17.6 cm/sec. Dist ICA 56.3/14.4 cm/sec. Rt. ICA/CCA = 0.8. Lt. ICA/CCA = 0.8. Prox ECA 66.7/6.2 cm/sec. Prox ECA 72.4/6.2 cm/sec. Rt. Vert. 53.5/15.7 cm/sec. Lt. Vert. 31.0/6.1 cm/sec. Right Extracranial There is intimal thickening but no significant atherosclerotic plaque noted in the right common carotid artery. There is heterogeneous, irregular atherosclerotic plaque noted in the right internal carotid artery. There is intimal thickening but no significant atherosclerotic plaque noted in the right external carotid artery. Antegrade flow is noted in the right vertebral artery. Left Extracranial There is intimal thickening but no significant atherosclerotic plaque noted in the left common carotid artery. There is heterogeneous, irregular atherosclerotic plaque noted in the left internal carotid artery. The atherosclerotic plaque causes acoustic shadowing. There is intimal thickening but no significant atherosclerotic plaque noted in the left external carotid artery. Antegrade flow is noted in the left vertebral artery. Procedure Carotid Duplex 33061. This is a Carotid Duplex examination using B-mode, color flow and specral Doppler. The exam was diagnostic. Exam performed in department. VL/Carotid Duplex Ultrasound Interpretation Summary Mild (<50%) stenosis right extracranial internal carotid. There appears to be m ild stenosis (<50%) in the left internal carotid artery based upon velocity criteria. However, acou stic shadowing in the proximal left internal carotid artery precludes syed-scale visualization of the arterial lumen. In this regard, clinical correlation is advised, and an alternative imaging modali ty may be helpful. Flow within the vertebral arteries is antegrade bilaterally. Ordering Physician: Candice Linton Referring Physician: Candice Linton Performed By: Chaz Hidalgo RVT
== END | disposition home or self-care (01) ==
LOC: CVS 12:56
PROVIDERS: PCP Internal Medicine; Referring Provider Internal Medicine; Visit Provider Internal Medicine
DX: I65.23 Occlusion and stenosis of bilateral carotid arteries (principal)
CPT/HCPCS: 93880

== ENCOUNTER → 2024-04-14 | Outpatient (CLI) | payer MEDICARE, OTHER, SELFPAY ==
--- NOTE | 2024-04-14 15:09 | BI_ITS ---
MAMMOGRAPHY - BILATERAL SCREENING REASON FOR EXAM: Female, 73 years old. Routine annual screening examination. PERTINENT HISTORY: Non-contributory. Prior right ultrasound-guided breast biopsy. TECHNIQUE: Digital bilateral breast parth (3D mammographic acquisition) in the CC and MLO projections. 2-D mediolateral oblique (MLO) and craniocaudad (CC) views of both breasts were obtained. CAD: Full Field Digital Mammography with Computer Added Detection was performed. COMPARISON: Comparison is made with prior study dated June 03, 2020 and May 22, 2011. FINDINGS: Breast Composition: The breasts are almost entirely fatty. There are no dominant masses or suspicious calcifications. Stable 1 cm well-defined nodule in the deep upper lateral portion of the right breast. Stable 4 mm well-defined nodule in the slightly upper lateral aspect of the left breast. These were demonstrated to be small lymph nodes on prior sonogram. Stable small bilateral axillary lymph nodes. No other significant abnormalities are identified. There has been no significant change since the prior study. BI/SCRN MAMM (CAD)W/PARTH BILAT IMPRESSION: Stable bilateral screening mammogram. Yearly follow-up mammogram recommended. (A) ASSESSMENT CATEGORY: BIRADS Category 2: Benign. A letter regarding these results will be sent to the patient by the facility within 30 days. Approximately 10% of breast cancers are not detected by mammography. A normal mammogram should not delay biopsy of a clinically suspicious abnormality. [id number] Electronically Signed: Fei Gasca MD at 7:55 EST ,
--- NOTE | 2024-04-14 15:12 | BD_ITS ---
STUDY: DUAL ENERGY X-RAY ABSORPTIOMETRY / DXA REASON FOR EXAM: Female, 73 years old. Z780 TECHNIQUE: Bone Mineral Density (BMD) measurements of lumbar spine and bilateral hips were obtained. COMPARISON: Comparison is made with prior study dated August 02, 2020. FINDINGS: Lumbar Spine (L1-L4): g/cm2 (1.169) / T-score (1.7) / Z-score (4.0) Findings are suggestive of normal bone density with a low fracture risk. Left Femur Total: g/cm2 (0.922) / T-score (-0.2) / Z-score (1.6) Left Femoral Neck: g/cm2 (0.672) / T-score (-1.6) / Z-score (0.5) Right Femur Total: g/cm2 (0.916) / T-score (-0.2) / Z-score (1.6) Right Femoral Neck: g/cm2 (1.028) / T-score (1.6) / Z-score (3.7) The T-Scores on the most recent prior examination were: Lumbar Spine (L1-L4): There has been improvement of bone density since the previous examination. Left Femur Total: which represents a worsening of 2.1%. Right Femur Total: which represents a worsening of 5.7%. BD/Dexa Bone Density Study IMPRESSION: The patient is considered osteopenic as outlined below according to World Yosv[employer] Organization (WHO) criteria with a moderate fracture risk. There has been worsening of bone density since the previous examination. Reference Information: The T-score is the number of standard deviations above or below the standard which is normal for young adults at their peak bone mineral density. The World Health Organization (WHO) interprets the T-scores as follows: Above -1 Normal bone density Between -1 and -2.5 Osteopenia Equal to / or below -2.5 Osteoporosis As a practical clinical guideline, osteopenia may be graded as follows: Mild -1 through -1.5 Moderate -1.6 through -2.0 Severe -2.1 through -2.4 The Z-score is the number of standard deviations above or below age-matched controls. A Z-score of less than -1.5 would be considered abnormal. References: 1. NIH Osteoporosis and Related Bone Diseases www osteo.org 2. International Society for Clinical Densitometry www iscd.org 3. National Osteoporosis Foundation www nof.org Electronically Signed: Fei Gasca MD at 14:59 EST ,
== END | disposition home or self-care (01) ==
LOC: OPBD 15:07
PROVIDERS: PCP Internal Medicine; Referring Provider Internal Medicine; Visit Provider Internal Medicine
DX: Z12.31 Encounter for screening mammogram for malignant neoplasm of breast (principal); Z78.0 Asymptomatic menopausal state
CPT/HCPCS: 77063; 77067; 77080

== ENCOUNTER → 2024-05-25 | Outpatient (CLI) | payer MEDICARE, OTHER, SELFPAY ==
--- NOTE | 2024-05-25 13:45 | CT_ITS ---
STUDY: CTA NECK WITH CONTRAST REASON FOR EXAM: Female, 74 years old. ATTN TO LFT PROXIMAL ARTERY RADIATION DOSAGE (If Supplied By Facility): CTDIvol = ( 18.50 ) mGy, DLP = ( 556.82 ) mGycm TECHNIQUE: CT angiography with multi-detector data acquisition was performed from the aortic arch to the skull base following intravenous administration of IV 100mL Isovue-[id number]. MIP images were reconstructed from the axial data set. Post-processing of the angiographic images was performed, with multiplanar reformation and 3D reconstruction. Individualized dose optimization techniques were used for this CT. COMPARISON: None. FINDINGS: Mediastinal lymphadenopathy. The major upper limits of normal. Clinical correlation recommended. AORTIC ARCH: Normal visualized aortic arch. Normal origins of the brachiocephalic, left common carotid, and left subclavian arteries. RIGHT CAROTID ARTERIES: Normal right common carotid artery (CCA). Normal right common carotid bulb. There is mild atherosclerotic plaque formation of the origin of the right internal carotid artery with less than 50% cross sectional diameter stenosis. Normal visualized cervical portion of the right internal carotid artery. Normal origin of the right external carotid artery (ECA). LEFT CAROTID ARTERIES: Normal left common carotid artery (CCA). Normal left common carotid bulb. There is moderate atherosclerotic plaque formation of the origin of the left internal carotid artery with an estimated stenosis of 50-69% stenosis. Normal visualized cervical portion of the left internal carotid artery. Normal origin of the left external carotid artery (ECA). VERTEBRAL ARTERIES: Normal bilateral vertebral arteries. CT/CTA Neck W/WO Contrast IMPRESSION: Calcific plaques at the origin of both right and left internal carotid arteries. Less than 50% narrowing on the right side. 50-69% narrowing of the origin of the left internal carotid artery Electronically Signed: Fei Gasca MD at 14:41 EST ,
== END | disposition home or self-care (01) ==
LOC: CT 13:23
PROVIDERS: PCP Internal Medicine; Referring Provider Internal Medicine; Visit Provider Internal Medicine
DX: I65.23 Occlusion and stenosis of bilateral carotid arteries (principal)
CPT/HCPCS: 70498; Q9967

== ENCOUNTER → 2025-02-11 | Outpatient (CLI) | payer MEDICARE, OTHER, SELFPAY | END | disposition home or self-care (01) | LOC: MTLAB 11:44 | PROVIDERS: PCP Internal Medicine; Referring Provider Internal Medicine; Visit Provider Internal Medicine | DX: E03.9 Hypothyroidism, unspecified (principal) | CPT/HCPCS: 36415; 84439; 84443 ==

== ENCOUNTER → 2025-03-22 | Outpatient (CLI) | payer MEDICARE, OTHER, SELFPAY ==
[2025-03-22 10:32] LABS: Hematocrit 35.5 % (37-47); Hemoglobin 11.1 g/dL (12.0-15.0); Immature Granulocytes Count 0.040 X10^3/uL (0.0-0.0); Mean Corp Hgb Conc 31.3 g/dL (32-36); Mean Corpuscular Volume 89.9 fL (81-99); Mean Platelet Vol. 10.7 fl (6.2-12.0); NRBC Flagged by Analyzer 0 % (0-5); Platelet Count 250 K/mm3 (150-450); RBC Distribution Width CV 14.6 % (11.6-14.6); RBC Distribution Width SD 48.2 fl (35.1-43.9); Red Blood Count 3.95 M/mm3 (4.2-5.4); White Blood Count 9.5 K/mm3 (4.4-11.0)
[2025-03-22 11:19] LABS: FOLATES,SERUM (FOLIC ACID) 8.25 ng/mL (4.60-34.80)
[2025-03-22 11:27] LABS: AST(SGOT) 19 U/L (<=31); Alanine Aminotransfer ALT/SGPT 17 U/L (<=34); Albumin, Serum 4.0 g/dL (3.4-4.8); Alkaline Phosphatase 60 U/L (35-104); Anion Gap 10 (5-15); BUN 34 mg/dL (4-19); BUN/Creat Ratio 30.6 RATIO (10-20); Calcium,Total 10.5 mg/dL (7.6-11.0); Carbon Dioxide 27.6 mmol/L (21.0-32.0); Chloride 107 mmol/L (98-108); Globulin 3.0 g/dL (2.2-4.2); Glucose 112 mg/dL (70-99); Magnesium 1.9 mg/dL (1.5-2.2); Potassium 3.6 mmol/L (3.3-5.1); Syphilis Antibodies Nonreactive (Nonreactive); Vitamin B12 318 pg/mL (180-914); Vitamin D,25 Hydroxy 47.1 ng/mL (30-100)
[2025-03-29 08:08] LABS: Methylmalonic Acid Bld 547 nmol/L (0-378)
== END | disposition home or self-care (01) ==
LOC: MTLAB 07:41
PROVIDERS: PCP Internal Medicine; Referring Provider Internal Medicine; Visit Provider Internal Medicine
DX: R41.82 Altered mental status, unspecified (principal); E11.9 Type 2 diabetes mellitus without complications; E03.9 Hypothyroidism, unspecified; E55.9 Vitamin D deficiency, unspecified; I10 Essential (primary) hypertension
CPT/HCPCS: 36415; 80053; 82306; 82607; 82746; 83735; 83921; 84439; 84443; 85025; 86780

== ENCOUNTER 2025-03-29 12:21 | Outpatient (CLI) | payer MEDICARE, OTHER, SELFPAY ==
[2025-03-29 12:40] LABS: Mucous, Urine 0 SEEN /hpf (<or=2+); Red Blood Cells-Urine 0 SEEN /hpf (0-5)
[2025-03-29 12:52] LABS: Color, Urine Yellow (Yellow); Glucose, Dipstick Normal (Normal); Ketone-Dipstick Negative (Negative); Leukocyte Esterase-Dipstick 25 /ul (Negative); Nitrite-Dipstick Negative (Negative); Occult Blood-Urine 10 /ul (Negative); Protein-Dipstick 30 mg/dl (Negative); Specific Gravity, Urine 1.020 (1.002-1.030); Urine Bilirubin Dipstick Negative (Negative)
[2025-03-29 12:59] LABS: Squamous Epithelial Cells - UA 0-5 SEEN /hpf (5-10)
[2025-03-29 13:12] LABS: Creatinine, Urine (random) 60.00 mg/dL (28.00-217.00); Microalbumin,Random Urine 71.1 mg/L (<20 mg/L)
== END 2025-03-29 23:59 | disposition home or self-care (01) ==
LOC: LABSPEC 12:23
PROVIDERS: PCP Internal Medicine; Referring Provider Internal Medicine; Visit Provider Internal Medicine
DX: E11.9 Type 2 diabetes mellitus without complications (principal); R32 Unspecified urinary incontinence
CPT/HCPCS: 81001; 82043; 82570; 87077; 87086; 87088; 87186